=== PATIENT | female | born 1985 | race Caucasian/White ===

== ENCOUNTER 2021-02-14 10:24 | Emergency (ER) | payer OTHER ==
[2021-02-14] MEDS ORDERED: KEFLEX250 MG PO (11:18)
== END 2021-02-14 11:35 | disposition home or self-care (01) ==
LOC: FER 10:24
DX: S61.412A Laceration without foreign body of left hand, initial encounter (principal); W26.0XXA Contact with knife, initial encounter; Y92.009 Unspecified place in unspecified non-institutional (private) residence as the place of occurrence of the external cause; Z23 Encounter for immunization
CPT/HCPCS: 90471; 90714